=== PATIENT | female | born 1975 | race Hispanic/Latino ===

== ENCOUNTER 2025-05-10 20:14 | Emergency (ER) | payer SELFPAY ==
[~2025-05-10] VITALS: Ht 149.9 cm; Wt 65.8 kg
[2025-05-10 22:16] LABS: BASOPHILS % 0.4 % (0.0-1.0); EOSINOPHILS % 1.3 % (0.0-6.0); LYMPHOCYTES % 38.1 % (18.0-39.1); MONOCYTES % 7.3 % (4.4-11.3); NEUTROPHILS % 52.6 % (38.7-80.0); RED CELL DISTRIBUTION WIDTH 14.3 % (11.7-14.4)
[2025-05-10 22:39] LABS: EST GLOMERULAR FILTRATION RATE 101.0 ML/MIN (>=60)
[2025-05-10] MEDS: SODIUM CHLORIDE 0.9% 1000ML 1,000 ML IV ONE (22:49)
[2025-05-11] MEDS ORDERED: IOPAMIDOL 370 MG/ML 100 ML INFUS..BTL INJ ONE (00:21)
[2025-05-11 02:14] VITALS: PULSE 66; RESP 16; TEMP 98
[2025-05-11 02:24] VITALS: BP 131/78; PULSE 66; RESP 16; TEMP 98; O2SAT 98
[2025-05-11] MEDS ORDERED: PANTOPRAZOLE SO40 MG PO (02:24)
== END 2025-05-11 02:30 | disposition home or self-care (01) ==
LOC: ER 21:14
DX: R19.5 Other fecal abnormalities (principal); K27.9 Peptic ulcer, site unspecified, unspecified as acute or chronic, without hemorrhage or perforation; R10.11 Right upper quadrant pain; E03.9 Hypothyroidism, unspecified; R94.31 Abnormal electrocardiogram [ECG] [EKG]
CPT/HCPCS: 36415; 74177; 80053; 83690; 85025; 93005; 99284; J2470; J7030; Q9967